=== PATIENT | male | born 1980 | race Caucasian/White ===

== ENCOUNTER 2025-02-28 17:33 | Emergency (ER) | payer MEDICAID, SELFPAY ==
[2025-02-28 17:38] VITALS: BP 153/98; PULSE 69; O2SAT 93
[2025-02-28 17:39] VITALS: BP 153/98; PULSE 90; RESP 20; O2SAT 99
[2025-02-28 17:46] VITALS: BP 169/95; PULSE 101; PULSE 85; RESP 22; O2SAT 94
--- NOTE | 2025-02-28 17:56 | ED.GENADUL_ITS ---
Discharge Plan Disposition Patient Disposition: [facility] Condition: Stable Discharge Details Clinical Impression: Drug abuse, Drug withdrawal ED Provider: Wes Chacon Home Meds and New Rx's Prescriptions: Continued sildenafil 50 mg tablet 50 mg PO DAILY PRN (Reason: sexual activity) Qty: 10 6RF Rx Instructions: administer 30 minutes to 4 hours before activity methadone 10 mg/mL concentrate 110 mg PO DAILY Rx Instructions: BAART Discharge Instructions Additional Instructions: You are likely experiencing some withdrawal symptoms which resolved and are not life-threatening. If you feel significantly more ill or feel you are suffering from an emergent medical process return to the emergency department for reevaluation. HPI General Mode of arrival: EMS . Date/Time Provider Initiated Documentation: 02/28/25 17:51 . Information obtained by: patient . History of Present Illness 44 year old M presents to the emergency department with the chief complaint of ?withdrawing, described as moderate, Patient started experiencing this hour(s) (1) and it has been constant. No relieving factors improve symptom(s), No exacerbating factors reported . Patient notes no other symptoms.. Patient did receive the following treatments prior to arrival, none Related Data Home Medications ?Medication ?Instructions ?Recorded ?Confirmed sildenafil 50 mg tablet 50 mg PO DAILY PRN sexual activity 11/29/19 11/29/19 #10 tabs methadone 10 mg/mL oral concentrate 110 mg PO DAILY 09/30/20 Previous Rx's ?Medication ?Instructions ?Recorded sildenafil 50 mg tablet 50 mg PO DAILY PRN sexual activity 11/29/19 #10 tabs Allergies Allergy/AdvReac Type Severity Reaction Status Date / Time No Known Allergies Allergy Verified 11/13/19 16:46 General Stated Complaint: DrugWithdr/MAT JULIA: 3 Review of Systems All systems reviewed & are unremarkable except as noted in HPI and below Constitutional Constitutional: Denies chills, Denies fever(s) and Denies weakness Cardiovascular Cardiovascular: Denies chest pain and Denies dyspnea Respiratory Respiratory: Denies cough and Denies dyspnea Gastrointestinal Gastrointestinal: Denies abdominal pain, Reports nausea and Reports vomiting Neurologic Neurologic: Denies weakness Psychiatric Psychiatric: Denies depression Exam Const General: no acute distress Orientation: alert HENMT Head: normal to inspection Ears: external ears normal General nose exam: external nose normal Mouth: moist mucous membranes Eyes General: appearance normal, both eyes and all related structures Neck Neck: normal visual inspection Resp Effort & Inspection: normal respiratory effort and able to speak in complete sentences Auscultation: clear to auscultation bilaterally Cardio Rate: regular rate GI Palpation: soft and nontender Skin General skin exam: no rashes or lesions noted Neuro General: patient alert and patient oriented x3 Extrem General: normal to inspection Psych Mental Status: mental status grossly normal Course Vital Signs Vital signs: Vital Signs Pulse 90 02/28/25 17:39 Respiratory Rate 20 02/28/25 17:39 Blood Pressure 153/98 H 02/28/25 17:39 Pulse Oximetry 99 02/28/25 17:39 Pulse 90 02/28/25 17:39 Respiratory Rate 20 02/28/25 17:39 Blood Pressure 153/98 H 02/28/25 17:39 Pulse Oximetry 99 02/28/25 17:39 Oxygen Delivery Method Room Air 02/28/25 17:39 Oxygen Flow Rate 0 02/28/25 17:39 Medical Decision Making 44-year-old male who states he uses xylazine and other drug normal daily, denies any alcohol use, who was placed in custody today a few hours later started flailing around and acting bizarre so was brought here by EMS. EMS gave him midazolam and he is currently calm and cooperative laying in bed complaining of some nausea. He is moving all extremities well, has a soft nontender abdomen. He has clear lung sounds. Suspect he probably did have some mild withdrawal symptoms or could have been drug related. Will check screening labs and monitor. Labs show no significant findings and patient is stable resting in bed. 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) Social History (Updated 11/29/19 @ 15:22 by Cata Chapman RN) Smoking/Tobacco Use Status: Current every day Tobacco Type: cigarettes Smoking packs per day: 1 Smoking cigarettes per day: 20.0 Smoking risk assessment performed?: Yes Alcohol Intake: current Alcohol Intake frequency: a few times a week Alcohol type: beer Drug use: Occasionally Substance use type: marijuana, heroin and opiates Details: History of IV Drug Use Household members: significant other Housing: apartment Number of Children: 4 Do you need help understanding health information?: Never current occupation: [employer] Sexually active: Yes Do you think of yourself as: straight/heterosexual Current gender identity: male
[2025-02-28] MEDS: Ondansetron O.D.T. 4 MG TABEF PO (17:59)
[2025-02-28 18:43] LABS: ALT 81 U/L (16-63); AST 53 U/L (15-37); Alkaline Phosphatase 163 U/L (46-116); Anion Gap 9.9 mmol/L (3-11); BUN 9 mg/dL (7-18); Bilirubin, Total 0.5 mg/dL (0.2-1.0); CO2 29.1 mmol/L (21.0-32.0); CREATININE 0.7 mg/dL (0.70-1.30); Calcium 9.5 mg/dL (8.5-10.1); Chloride 102 mmol/L (98-107); ETHANOL BLOOD < 3.0 mg/dL (<10); Estimated GFR 117.98 (mL/min/1.73m2); Glucose 129 mg/dL (74-106); Magnesium 1.6 mg/dL (1.8-2.4); Sodium 141 mmol/L (136-145); Total Protein 8.3 g/dL (6.4-8.2)
[2025-02-28 19:09] LABS: Abs Immature Grans 0.04 10^3/uL (0.0-0.06); Absolute Eosinophil Count 0.01 10^3/uL (0.0-0.7); Absolute Monocyte Count 0.48 10^3/uL (0.1-0.8); Basophils % 0.4 %; Eosinophils % 0.1 %; HCT 43.7 % (40.0-50.0); HGB 14.9 g/dL (13.5-17.5); Immature Grans % 0.3 %; Lymphocytes % 9.8 %; MCH 29.9 pg (27.0-33.0); MCHC 34.1 % (32.0-36.0); MCV 88 fL (80-95); MPV 9.3 fL (8.0-11.0); Monocytes % 3.4 %; Platelet Count 332 10^3/uL (130-400); RBC 4.98 10^6/uL (4.36-5.78); RDW 11.7 % (11.8-14.1); RDW-SD 37.3 fL; WBC 14.12 10^3/uL (4.4-10.8)
[2025-02-28 19:10] LABS: Absolute Basophil Count 0.06 10^3/uL (0.0-0.2); Absolute Lymphocyte Count 1.38 10^3/uL (1.2-3.4); Absolute Neutrophil Count 12.14 10^3/uL (1.2-6.7)
[2025-02-28 19:18] VITALS: PULSE 77; O2SAT 94
[2025-02-28 19:24] VITALS: PULSE 78; O2SAT 96
[2025-02-28 19:26] VITALS: BP 139/57; PULSE 67; O2SAT 99
== END 2025-02-28 20:29 ==
LOC: ER 20:31
PROVIDERS: Emergency Provider Emergency Medicine
DX: F19.139 Other psychoactive substance abuse with withdrawal, unspecified (principal); F17.210 Nicotine dependence, cigarettes, uncomplicated
CPT/HCPCS: 80053; 99283; 80320; 83735; 85025

== ENCOUNTER 2025-03-01 01:15 | Inpatient (IN) | payer MEDICAID, SELFPAY ==
[2025-03-01] VITALS (76 sets, daily range): BP systolic 102–180; BP diastolic 57–112; PULSE 87–183; RESP 14–41; TEMP 37.6–38.7; O2SAT 94–100
--- NOTE | 2025-03-01 01:10 | ED.GENADUL_ITS ---
Discharge Plan Disposition Patient Disposition: Admit to [facility] Condition: Poor Discharge Details Clinical Impression: Polysubstance abuse, Benzodiazepine withdrawal, Hypokalemia, Hypomagnesemia Primary Care Provider: Unknown,Unknown ED Provider: Alvarez Mcghee and New Rx's Prescriptions: No Action sildenafil 50 mg tablet 50 mg PO DAILY PRN (Reason: sexual activity) Qty: 10 6RF Rx Instructions: administer 30 minutes to 4 hours before activity methadone 10 mg/mL concentrate 110 mg PO DAILY Rx Instructions: KLAEN HAMILTON General Mode of arrival: EMS . Date/Time Provider Initiated Documentation: 03/01/25 01:36 . Limitations to Documentation: other (hestitant to provide history in front of corrections) . Information obtained by: patient and RN notes reviewed . HPI Narrative: Patient is brought back to ED from corrections for evaluation of anxiety, sweats, tremor, vomiting. Patient has just been taken into custody. He was seen here earlier with agitation and had received Versed by EMS. Here he had no real issues. Laboratory studies were checked and he was released back into custody. He is brought back for worsening symptoms. Patient is hesitant to speak in front of corrections officers. Correctional officers are not allowed to leave the room per their supervises orders. Therefore, difficult to get history but it does sound like patient is using fair amount of benzodiazepines and xylazine. Also admits to a couple beers a day. He denies any chest pain or abdominal pain. Is otherwise not very forthcoming. Related Data Home Medications ?Medication ?Instructions ?Recorded ?Confirmed sildenafil 50 mg tablet 50 mg PO DAILY PRN sexual activity 11/29/19 11/29/19 #10 tabs methadone 10 mg/mL oral concentrate 110 mg PO DAILY 09/30/20 Previous Rx's ?Medication ?Instructions ?Recorded sildenafil 50 mg tablet 50 mg PO DAILY PRN sexual activity 11/29/19 #10 tabs Allergies Allergy/AdvReac Type Severity Reaction Status Date / Time No Known Allergies Allergy Verified 11/13/19 16:46 General JULIA: 3 Exam Narrative Exam Narrative: Const: WDWN male who is diaphoretic and tremulous. VS per triage. HEENT: NC/AT. Normal facial exam. Neck: Supple. Trachea midline. Lungs: Normal respiratory effort. Lungs clear. Cor: RRR without murmur. Good radial pulses. GI: Soft/ND/NT. Neuro: A+O x 3. Normal speech, mentation. Cranial nerves II - XII grossly intact. No gross motor or sensory deficit. Ext: No C/C/E. Medical Decision Making Patient returns to ED from corrections with what is likely benzodiazepine withdrawal. Does not sound like he drinks enough alcohol on a regular basis to be alcohol withdrawal. He does admit to xylazine use and some of this may be related to that but given his diaphoresis, vomiting, tremors and tachycardia suspect this is more benzodiazepine withdrawal than anything. Laboratory studies from earlier today show low magnesium and low potassium. Will repeat these tonight as well as give fluid bolus. Will obtain EKG given reported xylazine use. Will give Zofran for nausea and vomiting and Valium for presumed withdrawal. Patient's potassium and magnesium continue to be low so these are replaced intravenously. He is much improved after Zofran and Valium. He is having behavioral issues including meowing and hissing like a cat, and as I came into the room to reassess him threw his head back and spit up a bunch of saliva. His response to the Valium suggest that he is having benzodiazepine withdrawal. He does have history of IVDA/opiate use and has been on methadone prevously, as well. Xylazine typically used with fentanyl so there may be opiate withdrawal as well. I do not think [facility] has the ability to detox him. I have discussed this with the corrections officers who are in agreement. I have spoken to the nursing drywall application supervisor as well as to the hospitalist. Will continue IV fluids. I have ordered another 5 mg of IV Valium. Will plan admission for further withdrawal management. Lab Data Lab results reviewed: Yes I reviewed the patient's lab results. Lab results narrative: see [facility] ECG Data Attestation: I personally reviewed and interpreted this ECG (s) as follows: Prior ECG tracings: not available for review Interpretation: see MDM/EKG Critical Care Time Critical Care Time Critical Care Time: Yes Total Critical Care Time: 45 Attestation: Upon my evaluation, this patient had a high probability of imminent or life- threatening deterioration, which required my direct attention, intervention, and personal management. I have personally provided 45 minutes of critical care time exclusive of time spent on separately billable procedures. Time includes monitoring for potential decompensation, ordering of tests and medications, review of laboratory and radiology results, discussion with consultants and documentation . Interventions were performed as documented above in procedures. 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) Social History Smoking/Tobacco Use Status: Current every day Tobacco Type: cigarettes Smoking packs per day: 1 Smoking cigarettes per day: 20.0 Smoking risk assessment performed?: Yes Alcohol Intake: current Alcohol Intake frequency: a few times a week Alcohol type: beer Drug use: Daily Substance use type: marijuana, heroin and opiates Details: History of IV Drug Use Household members: significant other Housing: apartment Number of Children: 4 Do you need help understanding health information?: Never current occupation: [employer] Sexually active: Yes Do you think of yourself as: straight/heterosexual Current gender identity: male
--- NOTE | 2025-03-01 01:30 | RT.EKG_ITS ---
APPROVED REPORT Exam: Resting ECG Reason for Exam: qt monitoring Patient Location: E HR:95 bpm ECG Measurements Heart Rate 95 AXIS ND 155 P 83 QRSd 88 QRS 92 QT 318 T 45 QTc 403 Conclusion Sinus rhythm...normal P axis, V-rate 60- 99 Ventricular premature complex...V complex w/ short R-R interval Normal Interval/[place] Nonspecific ST-T changes
[2025-03-01 01:52] LABS: Anion Gap 11.3 mmol/L (3-11); BUN 12 mg/dL (7-18); CO2 28.7 mmol/L (21.0-32.0); Calcium 9.7 mg/dL (8.5-10.1); Chloride 103 mmol/L (98-107); Estimated GFR 96.37 (mL/min/1.73m2); Glucose 201 mg/dL (74-106); Magnesium 1.6 mg/dL (1.8-2.4); Potassium 3.1 mmol/L (3.5-5.1); Sodium 143 mmol/L (136-145)
[2025-03-01] MEDS: diazePAM 10 MG/2 ML SYR IVP (01:57)
[2025-03-01] MEDS: Normal Saline 1,000 ML 1000 ML IV (01:58)
[2025-03-01] MEDS: Ondansetron 4 MG/2 ML VIAL IVP ×3 (01:58→20:13)
[2025-03-01] MEDS: MAGNESIUM SULFATE 2 GM/50 ML BAG IV_INF ×2 (03:11→19:00)
[2025-03-01] MEDS: POTASSIUM CHLORIDE 10 MEQ/100 ML BAG 100 MEQ IV_INF ×2 (03:31→04:42)
[2025-03-01] MEDS: diazePAM 10 MG/2 ML SYR 5 MG IVP ×2 (04:00→04:25)
--- NOTE | 2025-03-01 04:34 | HPE_ITS ---
Date of service: 03/01/25 Time of Service: 04:34 Assessment and Plan Assessment and plan (1) Benzodiazepine withdrawal: Status: Acute Assessment and plan: Given his response to valium clinically and the minimal history we have, this appears to be primarily benzodiazepine withdrawal. He does respond to benzos so will stick with this, use standard lorazepam protocol with additional diazepam prn. He has minimal alcohol use (2) Polysubstance abuse: Status: Acute Assessment and plan: Also xylazine and likely fentanyl use. He is starting to yawn suggesting some opioid withdrawal. However sedative withdrawal is most medically life- threatening so focus treatment on this. If additional sedation needed, with xylazine use precedex would make sense as well or oral clonidine if he is more cooperative. we need a UDS to help guide therapy, catheterize if necessary. (3) History of opioid abuse: Status: Acute Assessment and plan: Offer MOUD with buprenorphine when he is stable and more cooperative, especially if he is clearly experiencing opioid withdrawal (4) Hypokalemia: Status: Acute Assessment and plan: supplemented, follow. (5) Hypomagnesemia: Status: Acute Assessment and plan: supplemented, follow (6) Nicotine dependence: Status: Acute Assessment and plan: nicotene patch prn (7) Elevated liver enzymes: Status: Acute Assessment and plan: high risk for hepatitis, send hep B/C and HIV screeens (8) DVT prophylaxis: Status: Acute Assessment and plan: enoxaparin History of Present Illness History of Present Illness Chief Complaint: anxiety, drug withdrawal N arrative: 44 yo M with history of polysubstance abuse, history of methadone for opioid use disorder but not recently in treatment, who returned to the emergency room with correctional staff for the second after being discharged the previous evening with increased anxiety, sweats, vomiting, and tremor. He initially presened at 17:36 with more mild symtpoms after being taken into custody by police. He was given midazolam in the field and was resting in bed. He was discharged at 19:45 but returned at 1:10 this morning with more severe symptoms. He gave minimal history but his symptoms including HR and BP clearly improved after diazepam. I was called to admit his for presumed benzodiazepine withdrawal. He has vomited here. He has a spit mask because he was spitting at the correctional officers. He has not had any urine output or diarrhea. The patient himself will not answer questions for me about what he is taking. He does nod to confirm he is taking benzodiazepines, xylazine, and fentanyl. 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) Medical History IVDU (intravenous drug user) Social History (Updated 03/01/25 @ 04:46 by Eder Reina) Smoking/Tobacco Use Status: Current every day Tobacco Type: cigarettes Smoking packs per day: 1 Smoking cigarettes per day: 20.0 Smoking risk assessment performed?: Yes Alcohol Intake: current Alcohol Intake frequency: a few times a week Alcohol type: beer Drug use: Daily Substance use type: marijuana, heroin, tranquilizers, sedatives and opiates Details: History of IV Drug Use Household members: significant other Housing: apartment Number of Children: 4 Do you need help understanding health information?: Never current occupation: [employer] Sexually active: Yes Do you think of yourself as: straight/heterosexual Current gender identity: male Additional Social history: police custody 02/28 Meds Allergies and Home Medications Allergies Allergy/AdvReac Type Severity Reaction Status Date / Time No Known Allergies Allergy Verified 11/13/19 16:46 Home Medications ?Medication ?Instructions ?Recorded ?Confirmed ?Type sildenafil 50 mg tablet 50 mg PO DAILY PRN sexual activity 11/29/19 11/29/19 Rx #10 tabs methadone 10 mg/mL oral concentrate 110 mg PO DAILY 09/30/20 History Exam Narrative Exam Narrative: GEN: This male, shackeled to bed at 4 points, with spit baels over head, alert, responds to some questions, but mostly closes eyes and lays on his side. No acute distress at rest. HEENT: Head atraumatic. Conjunctiva clear, no icterus. Pupils mid-sized and reactive bilateraly, EOMI. no rhinorrhea. MMM, no clear dental lesions on limited exam. Neck is supple with no masses or lymphadenopathy, trachea midline LUNGS: CTAB with normal effort CV: RRR with no murmurs, gallops, or rubs. ABD: active bowel sounds, soft, nontender and nondistended. No masses. EXT: no cyanosis, clubbing, or edema MSK: No joint redness or swelling NEURO: CN 2-12 grossly intact. Normal movement of 4 extremities. Normal coordination. No tremor currently. SKIN: No rashes or open wounds PSYCH: withdrawn during my exam. Report of bizzare behavior like meowing, but clearly understands and responds to what is happening in the room. Results Imaging EKG: report reviewed (Sinus rhythm, normal axis, V-rate, PCVs V complex w/ short R-R interval Normal Interval/[place] Nonspecific ST-T changes) and image reviewed Labs 03/01/25 01:28 Labs: Laboratory Results - last 24 hr 03/01/25 01:28 Sodium 143 Potassium 3.1 L Chloride 103 Carbon Dioxide 28.7 Anion Gap 11.3 H BUN 12 Creatinine 1.0 Est GFR (CKD-EPI 2020) 96.37 Glucose 201 H Calcium 9.7 Magnesium 1.6 L Last Vital Signs Pulse 113 H 03/01/25 04:16 Resp 26 H 03/01/25 04:20 BP 175/68 H 03/01/25 04:16 Pulse Ox 96 03/01/25 03:07 Time Spent Time spent with Patient: 55-74 minutes Time was spent: preparing to see the patient(eg.review tests), obtaining and/or reviewing separately otained hiistory, ordering medications,tests, procedures, referring, communicating with other health senior resident care director, indepentently interpreting results, counseling the patient and care coordination
--- NOTE | 2025-03-01 05:13 | W.PC.ACHO ---
Registration Status: Primary Language: Preferred Language: ED Information & Data Chief Complaint DrugWithdr/MAT 03/01/25 01:32 Chief Complaint DrugWithdr/MAT 03/01/25 01:10 Triage Note pt brought in by EMS in [facility] 03/01/25 01:10 custody, pt discharged earlier this evening. returns for increased tremors, episode of vomiting and seizure like activity. used xylazine and benzos 2 days ago. pt vomiting on arrival. Medical / Surgical History IVDU (intravenous drug user) Most Recent Vital Signs Temperature Source Oral 03/01/25 01:10 Pulse 113 H 03/01/25 04:16 Pulse 126 H 03/01/25 04:20 Respiratory Rate 26 H 03/01/25 04:20 Respiratory Pattern Normal 03/01/25 01:32 Blood Pressure 175/68 H 03/01/25 04:16 Blood Pressure Mean 99 03/01/25 04:16 Blood Pressure Position Sitting 03/01/25 01:10 Pulse Oximetry 96 03/01/25 03:07 Oxygen Delivery Method Room Air 03/01/25 01:10 Oxygen Flow Rate 0 03/01/25 01:10 Pain Level 0 03/01/25 01:10 Allergies No Known Allergies Allergy (Verified 11/13/19 16:46) Precautions Isolation Standard precaution 03/01/25 01:32 IV IV Catheter Type [Right Upper Saline Lock arm] IV Catheter Gauge [Right Upper 20 arm] Diet Orders Category Date Time Status Nothing Per Oral [DIET] Nutrition 03/01/25 Breakfast Active Diagnostics 03/01/25 03/01/25 Range/Units 08:00 01:28 Sodium Pending 143 (136-145) mmol/L Potassium Pending 3.1 L (3.5-5.1) mmol/L Chloride Pending 103 (98-107) mmol/L Carbon Dioxide Pending 28.7 (21.0-32.0) mmol/L Anion Gap Pending 11.3 H (3-11) mmol/L BUN Pending 12 (7-18) mg/dL Creatinine Pending 1.0 (0.70-1.30) mg/dL Est GFR (CKD-EPI 2020) Pending 96.37 (mL/min/1.73m2) Glucose Pending 201 H (74-106) mg/dL Calcium Pending 9.7 (8.5-10.1) mg/dL Magnesium Pending 1.6 L (1.8-2.4) mg/dL Intake and Output - 24 Hour Total 03/01/25 01:01 thru 03/01/25 04:31 Intake Total 1150 Balance 1150 Weight 73.845 kg Intake: IV 1150 Falls Risk Assessment History of Falls No History 03/01/25 01:34 Contributing Factors No Factors 03/01/25 01:34 Ambulatory Aids Independent 03/01/25 01:34 Tubes/Lines None 03/01/25 01:34 Gait Evaluation No gait disturbance 03/01/25 01:34 Cognition No cognitive impairment 03/01/25 01:34 Fall Total Score 0 03/01/25 01:34 Level of Risk Standard/Low Risk 03/01/25 01:34 Problems (Last Updated 03/01/25 @ 04:45 by Eder Reina) Elevated liver enzymes (Acute) DVT prophylaxis (Acute) Hypomagnesemia (Acute) Hypokalemia (Acute) Benzodiazepine withdrawal (Acute) Polysubstance abuse (Acute) History of opioid abuse (Acute) Nicotine dependence (Acute) v v v v v v v v v Sending and/or Receiving Nurses: Please use comment section below to note any information pertinent to the patient hand-off not included above. Information / Comments:Was brought in from correctional center. Is going through detoxing. Unsure of all substances taken, but did have xylazine two days ago. Valium given for symptom control. Patient had low magnesium and potassium which was repleted in ER. Patient is not speaking to staff. Behavioral issues include meowing/hissing like a cat, and spitting. Did have an episode of vomiting in the ER, and zofran was given. which was helpful. has 20g PIV in right upper arm. Report received from: Thierry Schwartz RN
[2025-03-01] MEDS: Normal Saline 1,000 ML 125 ML IV ×3 (05:58→22:54)
[2025-03-01 07:19] LABS: Hemoglobin A1C 5.8 % (<5.7)
[2025-03-01] MEDS: Enoxaparin 40 MG/0.4 ML SYR SC (07:53)
[2025-03-01] MEDS: Normal Saline Flush 10 ML SYR IVP ×6 (07:53→14:50)
[2025-03-01] MEDS: LORazepam 20 MG/10 ML VIAL IVP ×3 (08:32→20:14)
--- NOTE | 2025-03-01 08:32 | PDOC.CMIN ---
Date of service: 03/01/25 Time of Service: 08:32 Care Management Initial Assmt Initial Assessment Reason for Hospitalization: Benzodiazepine/polysubstance withdrawal Functional Status/Living Situation Patient Presentation: Kb was lying in bed and had a Dewaxer in the room. He presented to the ED on 2 separate occasions yesterday. He presented first, with the chief complaint of withdrawing; Later in the day, he presented for evaluation of anxiety, sweats, tremor, vomiting, after being taken into police custody. Upon CM arrival, he was online with tele-neurology. Per report, he was spitting at the aoc plans intelligence officer chief, and refusing to answer questions, other than with a meowing sound. CM will continue to follow. Town of Residence: [facility] Resides with: Other ([facility] ) Significant Other/Family: Local ([facility] - Significant other ) Employment Status: Employed ([employer]) Instrumental Activities of Daily Living (ADLs): Independent Medications Medication Management: Issues/Barriers with Instructions/Directions Advance Directives Advance Directives: Do you have an Advance Directive: N 02/28/25 19:54 AD On File at [facility]: N 09/26/18 09:53 Date Asked 02/28/25 02/28/25 19:54 AD Date Reviewed COLST On File at [facility] No 02/28/25 19:54 COLST Date Scanned Code Status Resuscitation Status Full Code Portal Pt does not currently have a portal and education provided: No Insurance Coverage/Financial Issues Insurance: [facility] Care Team Visit Care Team Role Provider Type Alvarez Rivas MD MD [facility] STAFF PHYSICIAN Unknown Unknown Primary Care Provider STAFF PHYSICIAN Alvarez Mcghee MD Emergency Provider [facility] STAFF PHYSICIAN Eder Reina Admit Provider [facility] STAFF PHYSICIAN Attending Provider Discharge Potential Discharge Needs: PCP F/U Appt Anticipated Barriers to Discharge: Medical Status Patient/Family Education Needs: Review discharge instructions, discuss Ask Me Three Transportation: Facility Transport (DOC) Plan: Anticipate Kb will be discharged back to [facility]. He will follow up with the facility providers and discharge plan of care. He will be transported via facility vehicle by [facility] [employer]. 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) Medical History IVDU (intravenous drug user) Social History (Updated 03/01/25 @ 04:46 by Eder Reina) Smoking/Tobacco Use Status: Current every day Tobacco Type: cigarettes Smoking packs per day: 1 Smoking cigarettes per day: 20.0 Smoking risk assessment performed?: Yes Alcohol Intake: current Alcohol Intake frequency: a few times a week Alcohol type: beer Drug use: Daily Substance use type: marijuana, heroin, tranquilizers, sedatives and opiates Details: History of IV Drug Use Household members: significant other Housing: apartment Number of Children: 4 Do you need help understanding health information?: Never current occupation: [employer] Sexually active: Yes Do you think of yourself as: straight/heterosexual Current gender identity: male Additional Social history: police custody 02/28 Readmission Within the Past 30 Days Yes or No: No
[2025-03-01 09:50] LABS: BUN 14 mg/dL (7-18); CREATININE 0.8 mg/dL (0.70-1.30); Chloride 109 mmol/L (98-107); Estimated GFR 113.32 (mL/min/1.73m2); Glucose 154 mg/dL (74-106); Magnesium 1.8 mg/dL (1.8-2.4); Sodium 147 mmol/L (136-145)
[2025-03-01 16:59] LABS: *AMPHETAMINES SCREEN URINE Negative (Negative); *BARBITURATES SCREEN URINE Negative (Negative); *BENZODIAZEPINES SCREEN URINE Positive (Negative); Cannabinoids THC Negative (Negative); Cocaine Screen,Urine Positive (Negative); METHADONE URINE SCREEN Negative (Negative); OPIATES URINE SCREEN Negative (Negative)
[2025-03-01 17:00] LABS: Tricyclic Antidepressants Negative (Negative)
--- NOTE | 2025-03-01 18:15 | DI.RAD_ITS ---
Exam(s) XR PORTABLE CHEST AP EXAM: XR PORTABLE CHEST AP CLINICAL HISTORY: r/o aspiration pneumonia. TECHNIQUE: 2D digital imaging was performed. COMPARISON: No exams were available for comparison FINDINGS: Single AP portable view. Heart size is upper normal. The mediastinum is not widened. Lungs are clear. No infiltrates nor obvious pleural effusions. IMPRESSION: No acute pulmonary findings on this single AP portable view of the chest. DATA REPOSITORY: RADIATION DOSE DELIVERED:
[2025-03-01] MEDS: ACETAMINOPHEN 1,000 MG/100 ML BAG 400 MG (18:53)
[2025-03-01] MEDS: POTASSIUM CHLORIDE 20 MEQ/100 ML BAG 50 MEQ IV_INF (18:59)
[2025-03-01] MEDS: Nicotine 21 MG/24 HR PATCH TD (20:13)
[2025-03-02] VITALS (43 sets, daily range): BP systolic 119–163; BP diastolic 73–104; PULSE 75–146; RESP 16–46; TEMP 36.1–37.9; O2SAT 91–100
--- NOTE | 2025-03-02 | DI.RAD_ITS ---
Exam(s) XR PORTABLE CHEST AP EXAM: XR PORTABLE CHEST AP CLINICAL HISTORY: elevated wbc. TECHNIQUE: 2D digital imaging was performed. COMPARISON: CR XR PORTABLE CHEST AP from 03/01/2025 FINDINGS: Single AP portable view. Patient is rotated towards the left. Heart size normal. Mediastinum is not widened. The lungs remain clear with no infiltrates nor pleural effusions. No obvious pneumothorax. No fract ures evident. IMPRESSION: No acute pulmonary findings on this single AP portable view of the chest. DATA REPOSITORY: RADIATION DOSE DELIVERED:
[2025-03-02] MEDS: ACETAMINOPHEN 1,000 MG/100 ML BAG 400 MG ×2 (01:28→06:13)
[2025-03-02] MEDS: LORazepam 20 MG/10 ML VIAL IVP ×8 (01:28→22:58)
[2025-03-02] MEDS: Normal Saline Flush 10 ML SYR IVP ×8 (01:29→21:12)
[2025-03-02 06:36] LABS: Abs Immature Grans 0.07 10^3/uL (0.0-0.06); Absolute Basophil Count 0.02 10^3/uL (0.0-0.2); Absolute Lymphocyte Count 1.74 10^3/uL (1.2-3.4); Absolute Monocyte Count 0.93 10^3/uL (0.1-0.8); Absolute Neutrophil Count 14.17 10^3/uL (1.2-6.7); Basophils % 0.1 %; HCT 38.7 % (40.0-50.0); Immature Grans % 0.4 %; Lymphocytes % 10.3 %; MCHC 33.6 % (32.0-36.0); MCV 89 fL (80-95); MPV 10.1 fL (8.0-11.0); Monocytes % 5.5 %; Neutrophils % 83.7 %; Platelet Count 272 10^3/uL (130-400); RBC 4.33 10^6/uL (4.36-5.78); RDW 12.1 % (11.8-14.1); RDW-SD 39.7 fL; WBC 16.93 10^3/uL (4.4-10.8)
[2025-03-02 07:12] LABS: ALT 57 U/L (16-63); AST 38 U/L (15-37); Albumin 3.5 g/dL (3.4-5.0); Alkaline Phosphatase 123 U/L (46-116); Anion Gap 9.3 mmol/L (3-11); BUN 15 mg/dL (7-18); Bilirubin, Total 0.9 mg/dL (0.2-1.0); CO2 26.7 mmol/L (21.0-32.0); CREATININE 0.7 mg/dL (0.70-1.30); Calcium 8.8 mg/dL (8.5-10.1); Chloride 111 mmol/L (98-107); Estimated GFR 117.98 (mL/min/1.73m2); Glucose 116 mg/dL (74-106); Sodium 147 mmol/L (136-145); Total Protein 7.4 g/dL (6.4-8.2)
[2025-03-02] MEDS: Normal Saline 1,000 ML 125 ML IV (07:20)
[2025-03-02] MEDS: Enoxaparin 40 MG/0.4 ML SYR SC (08:08)
[2025-03-02] MEDS: ACETAMINOPHEN 1,000 MG/100 ML BAG 400 MG IVPB (12:24)
--- NOTE | 2025-03-02 13:47 | PGE_ITS ---
Date of Service Date of service: 03/02/25 Time of Service: 13:47 Assessment and Plan Assessment and plan (1) Benzodiazepine withdrawal: Status: Acute Assessment and plan: Given his response to valium clinically and the minimal history we have, this appears to be primarily benzodiazepine withdrawal. He does respond to benzos so will stick with this, use standard lorazepam pr otocol with additional diazepam prn. He has minimal alcohol use 03/02/25 Pt with CIWA of 10 this am. C/W benzo prn. Pt is only getting IV as he is refusing PO meds. Would like to give librium but this is only available in PO form (2) Polysubstance abuse: Status: Acute Assessment and plan: Also xylazine and likely fentanyl use. He is starting to yawn suggesting some opioid withdrawal. However sedative withdrawal is most medically life- threatening so focus treatment on this. If additional sedation needed, with xylazine use precedex would make sense as well or oral clonidine if he is more cooperative. we need a UDS to help guide therapy, catheterize if necessary. 03/02/25 UDS positive for cocaine and benzos (3) History of opioid abuse: Status: Acute Assessment and plan: Offer MOUD with buprenorphine when he is stable and more cooperative, especially if he is clearly experiencing opioid withdrawal (4) Hypokalemia: Status: Acute Assessment and plan: supplemented, follow. 03/02/25 Pt is refusing po and I will add IV potassium (5) Hypomagnesemia: Status: Acute Assessment and plan: supplemented, follow 03/02/25 Resolved (6) Nicotine dependence: Status: Acute Assessment and plan: nicotene patch prn (7) Elevated liver enzymes: Status: Acute Assessment and plan: high risk for hepatitis, send hep B/C and HIV screeens (8) DVT prophylaxis: Status: Acute Assessment and plan: enoxaparin Subjective Subjective Interval history since last seen: Pt seen and examined in his room this am. Pt does not communicate with me. Exam Narrative Exam Narrative: HEENT-NCAT MMM EOMI NECK-NO LAD NO JVD CV-RRR NO MRG PULM-CTAB NO AMU ABD-SCAPHOID BSA EXT-NO CCE BILAT NEURO-NO FOCAL DEFICITS PSYCH-CANNOT ASSESS 2/2 PT NOT WILLING TO COOPERATE Objective Last Vital Signs Temp 36.8 C 03/02/25 13:33 Pulse 111 H 03/02/25 12:01 Resp 16 03/02/25 12:01 BP 122/80 03/02/25 12:01 Pulse Ox 98 03/02/25 12:01 Laboratory Results - last 24 hr 03/01/25 03/02/25 13:10 05:44 WBC 16.93 H RBC 4.33 L Hgb 13.0 L Hct 38.7 L MCV 89 MCH 30.0 MCHC 33.6 RDW 12.1 Plt Count 272 MPV 10.1 Immature Gran % 0.4 Neutrophils % 83.7 Lymphocytes % 10.3 Monocytes % 5.5 Eosinophils % 0.0 Basophils % 0.1 Nucleated RBC % 0.0 Absolute Neutrophils 14.17 H Absolute Lymphocytes 1.74 Absolute Monocytes 0.93 H Absolute Eosinophils 0.00 Absolute Basophils 0.02 Sodium 147 H Potassium 3.0 L Chloride 111 H Carbon Dioxide 26.7 Anion Gap 9.3 BUN 15 Creatinine 0.7 Est GFR (CKD-EPI 2020) 117.98 Glucose 116 H Calcium 8.8 Total Bilirubin 0.9 AST 38 H ALT 57 Alkaline Phosphatase 123 H Total Protein 7.4 Albumin 3.5 Urine Opiates Screen Negative Urine Methadone Screen Negative Ur Barbiturates Screen Negative Ur Tricyclics Screen Negative Ur Amphetamines Screen Negative U Benzodiazepines Scrn Positive A Urine Cocaine Screen Positive A Ur THC Screen Negative Time Spent with Patient Time Spent with Patient: 25-34 minutes Time was spent: preparing to see the patient(eg.review tests), obtaining and/or reviewing separately otained hiistory, ordering medications,tests, procedures, referring, communicating with other health attending ambulatory care, indepentently interpreting results, counseling the patient and care coordination
[2025-03-02] MEDS: POTASSIUM CHLORIDE/0.45% NACL 1,000 ML 100 MEQ IV (14:09)
[2025-03-02 16:02] LABS: Procalcitonin < 0.10 ng/mL
[2025-03-02 16:16] LABS: Bilirubin Negative (Negative); Blood Negative (Negative); Clarity Clear (Clear); Glucose Negative (Negative); Ketones 15 mg/dL (Negative); Leukocyte Esterase Negative (Negative); Nitrite Negative (Negative)
[2025-03-02 16:17] LABS: ESR 7 mm/hr (0-15)
[2025-03-02 16:29] LABS: C-Reactive Protein < 0.50 mg/dL (<or=0.5)
[2025-03-02] MEDS: Nicotine 21 MG/24 HR PATCH TD (20:00)
[2025-03-02] MEDS: Ondansetron 4 MG/2 ML VIAL IVP (20:01)
[2025-03-02] MEDS: diazePAM 10 MG/2 ML SYR IVP ×3 (20:31→23:28)
[2025-03-03] VITALS (63 sets, daily range): BP systolic 122–155; BP diastolic 74–101; PULSE 73–130; RESP 20–48; TEMP 37.1–38.1; O2SAT 91–99
[2025-03-03] MEDS: POTASSIUM CHLORIDE/0.45% NACL 1,000 ML 100 MEQ IV ×3 (00:11→18:17)
[2025-03-03] MEDS: LORazepam 20 MG/10 ML VIAL IVP ×4 (00:52→08:50)
[2025-03-03] MEDS: diazePAM 10 MG/2 ML SYR IVP (03:20)
[2025-03-03 05:31] LABS: Abs Immature Grans 0.04 10^3/uL (0.0-0.06); Absolute Basophil Count 0.05 10^3/uL (0.0-0.2); Absolute Monocyte Count 0.88 10^3/uL (0.1-0.8); Absolute Neutrophil Count 12.17 10^3/uL (1.2-6.7); Basophils % 0.3 %; HCT 40.4 % (40.0-50.0); HGB 13.8 g/dL (13.5-17.5); Immature Grans % 0.3 %; Lymphocytes % 13.2 %; MCH 30.1 pg (27.0-33.0); MCHC 34.2 % (32.0-36.0); MCV 88 fL (80-95); MPV 9.5 fL (8.0-11.0); Monocytes % 5.8 %; Neutrophils % 80.4 %; Platelet Count 254 10^3/uL (130-400); RBC 4.58 10^6/uL (4.36-5.78); RDW 11.9 % (11.8-14.1); RDW-SD 38.1 fL; WBC 15.14 10^3/uL (4.4-10.8)
[2025-03-03] MEDS: Normal Saline Flush 10 ML SYR IVP ×2 (05:36→08:10)
[2025-03-03 05:46] LABS: ALT 49 U/L (16-63); AST 31 U/L (15-37); Albumin 3.5 g/dL (3.4-5.0); Alkaline Phosphatase 116 U/L (46-116); Anion Gap 9.2 mmol/L (3-11); BUN 15 mg/dL (7-18); CO2 26.8 mmol/L (21.0-32.0); CREATININE 0.6 mg/dL (0.70-1.30); Calcium 8.7 mg/dL (8.5-10.1); Chloride 108 mmol/L (98-107); Glucose 103 mg/dL (74-106); Potassium 3.3 mmol/L (3.5-5.1); Sodium 144 mmol/L (136-145); Total Protein 7.4 g/dL (6.4-8.2)
[2025-03-03] MEDS: Enoxaparin 40 MG/0.4 ML SYR SC (08:10)
--- NOTE | 2025-03-03 09:54 | PDOC.CMPRO ---
Date of service: 03/03/25 Time of Service: 09:54 Care Management Progress Note Progress Note Text Progress Note Text: Kb continues to require ICU level care for close monitoring and treatment for Benzodiazepine/polysubstance withdrawal. He is lying in bed and is accompanied by a search and rescue officer. Continue to wean off Benzodiazepine within the next 24-48 hours, per provider. CM provided and update to Soledad at the [facility]. CM will follow. Discharge Potential Discharge Needs: Consult Anticipated Barriers to Discharge: None Identified Patient/Family Education Needs: Review discharge instructions, discuss Ask Me Three Transportation: Private vehicle Plan: Anticipate, Kb will be discharged back to [facility]. He will follow up with the facility providers and discharge plan of care. He will be transported via facility vehicle by [facility] [employer]. Social Determinants of Health Screening Will the Patient Participate in the Screening?: Unable to obtain
--- NOTE | 2025-03-03 11:31 | PHA.REVIEW2 ---
Pharmacy Admission Review Admission Clinical Review Admission Pharmacy Review: Elevated liver enzymes (Acute) DVT prophylaxis (Acute) Hypomagnesemia (Acute) Hypokalemia (Acute) Benzodiazepine withdrawal (Acute) Polysubstance abuse (Acute) History of opioid abuse (Acute) Nicotine dependence (Acute) No Known Allergies Allergy (Verified 11/13/19 16:46) Resuscitation Status Full Code Height 5 ft 10 in Weight 66.2 kg Comments Comments/Follow Ups: plan to wean benzodiazepams. Pharmacy Admission Review Renal Dosing Renal Dosing: BUN 15 mg/dL (7-18) 03/03/25 05:15 Creatinine 0.6 mg/dL (0.70-1.30) L 03/03/25 05:15 Medications needing adjustments: Reviewed Anticoagulation Anticoagulation: Hgb 13.8 g/dL (13.5-17.5) 03/03/25 05:15 Hct 40.4 % (40.0-50.0) 03/03/25 05:15 Plt Count 254 10^3/uL (130-400) 03/03/25 05:15 Creatinine 0.6 mg/dL (0.70-1.30) L 03/03/25 05:15 DVT Prophylaxis: Reviewed Medications: Enoxaparin Opiate Usage Evaluate Pain Scale/Pains Meds: N/A Relevant Labs Relevant Labs: Potassium and magnesium repleted. ESR 7 mm/hr (0-15) 03/02/25 05:44 Sodium 144 mmol/L (136-145) 03/03/25 05:15 Potassium 3.3 mmol/L (3.5-5.1) L 03/03/25 05:15 Chloride 108 mmol/L (98-107) H 03/03/25 05:15 Magnesium 1.8 mg/dL (1.8-2.4) 03/01/25 09:30 C-Reactive Protein < 0.50 mg/dL (<or=0.5) 03/02/25 15:05 Electrolytes, C-Reactive P, ESR: Reviewed DM Control DM Control: N/A Cardiac Review BP, HR, EF%: Reviewed QTc Review QTc: Reviewed List meds needing interventions: IHy=[id number]; no adjustments needed. IV to PO Switch IV Medications: Reviewed Home Meds Home Med List reviewed: Reviewed Relevent Home Meds Not ordered & why?: was on methadone in past. Current Meds Current Medication Order Review: Reviewed Pharmacy Antibiotic Review Relevant Labs: Relevant Labs no antibiotics at this time 03/02/25 15:05 C-Reactive Protein < 0.50 Procalcitonin < 0.10 Comments Comments/Follow Ups: plan to wean benzodiazepams.
[2025-03-03 12:30] LABS: Fentanyl Scr w/Rfx Confirm Positive ng/mL (<1)
[2025-03-03 13:05] LABS: HIV-1/2 Ag & Ab Screen Negative (Negative)
[2025-03-03 13:53] LABS: Hepatitis C Ab w Rflx HCV PCR Reactive (Negative)
--- NOTE | 2025-03-03 14:09 | PGE_ITS ---
Date of Service Date of service: 03/03/25 Time of Service: 14:09 Assessment and Plan Assessment and plan (1) Benzodiazepine withdrawal: Status: Acute Assessment and plan: Given his response to valium clinically and the minimal history we have, this appears to be primarily benzodiazepine withdrawal. He does respond to benzos so will stick with this, use standard lorazepam pr otocol with additional diazepam prn. He has minimal alcohol use 03/02/25 Pt with CIWA of 10 this am. C/W benzo prn. Pt is only getting IV as he is refusing PO meds. Would like to give librium but this is only available in PO form 03/03/25 Pt still with a significant amount of benzo coverage. Will attempt to wean as tolerated. Pt does still have fairly significant tachy and tachypnea (2) Polysubstance abuse: Status: Acute Assessment and plan: Also xylazine and likely fentanyl use. He is starting to yawn suggesting some opioid withdrawal. However sedative withdrawal is most medically life- threatening so focus treatment on this. If additional sedation needed, with xylazine use precedex would make sense as well or oral clonidine if he is more cooperative. we need a UDS to help guide therapy, catheterize if necessary. 03/02/25 UDS positive for cocaine and benzos (3) History of opioid abuse: Status: Acute Assessment and plan: Offer MOUD with buprenorphine when he is stable and more cooperative, especially if he is clearly experiencing opioid withdrawal (4) Hypokalemia: Status: Acute Assessment and plan: supplemented, follow. 03/02/25 Pt is refusing po and I will add IV potassium 03/03/25 still with low k, cw iv replacement. (5) Hypomagnesemia: Status: Acute Assessment and plan: supplemented, follow 03/02/25 Resolved (6) Nicotine dependence: Status: Acute Assessment and plan: nicotene patch prn (7) Elevated liver enzymes: Status: Acute Assessment and plan: high risk for hepatitis, send hep B/C and HIV screeens (8) DVT prophylaxis: Status: Acute Assessment and plan: enoxaparin Subjective Subjective Interval history since last seen: PT seen and examined in his room this am. Pt did not communicate with me de spite multiple attempts Exam Narrative Exam Narrative: HEENT-NCAT MMM EOMI PERRLA NECK-NO LAD NO JVD CV-RRR NO MRG PULM-CTAB NO AMU ABD-SCAPHOID BSA EXT-NO CCE BILAT NEURO-NO FOCAL DEFICITS but not completely assessed PSYCH-CANNOT ASSESS 2/2 PT NOT WILLING TO COOPERATE Objective Last Vital Signs Temp 38.1 C H 03/03/25 12:18 Pulse 113 H 03/03/25 13:01 Resp 36 H 03/03/25 13:01 BP 145/84 H 03/03/25 13:01 Pulse Ox 96 03/03/25 12:30 Laboratory Results - last 24 hr 03/01/25 03/01/25 03/02/25 06:45 13:10 05:44 WBC RBC Hgb Hct MCV MCH MCHC RDW Plt Count MPV Immature Gran % Neutrophils % Lymphocytes % Monocytes % Eosinophils % Basophils % Nucleated RBC % Absolute Neutrophils Absolute Lymphocytes Absolute Monocytes Absolute Eosinophils Absolute Basophils ESR 7 Sodium Potassium Chloride Carbon Dioxide Anion Gap BUN Creatinine Est GFR (CKD-EPI 2020) Glucose Calcium Total Bilirubin AST ALT Alkaline Phosphatase C-Reactive Protein Total Protein Albumin Procalcitonin Urine Color Urine Clarity Urine pH Ur Specific [place] Urine Protein Urine Ketones Urine Blood Urine Nitrite Urine Bilirubin Urine Urobilinogen Ur Leukocyte Esterase Urine Glucose Urine Fentanyl Screen Positive A HIV 1&2 Ag/Ab, 4th Gen Negative 03/02/25 03/02/25 03/03/25 15:05 15:50 05:15 WBC 15.14 H RBC 4.58 Hgb 13.8 Hct 40.4 MCV 88 MCH 30.1 MCHC 34.2 RDW 11.9 Plt Count 254 MPV 9.5 Immature Gran % 0.3 Neutrophils % 80.4 Lymphocytes % 13.2 Monocytes % 5.8 Eosinophils % 0.0 Basophils % 0.3 Nucleated RBC % 0.0 Absolute Neutrophils 12.17 H Absolute Lymphocytes 2.00 Absolute Monocytes 0.88 H Absolute Eosinophils 0.00 Absolute Basophils 0.05 ESR Sodium 144 Potassium 3.3 L Chloride 108 H Carbon Dioxide 26.8 Anion Gap 9.2 BUN 15 Creatinine 0.6 L Est GFR (CKD-EPI 2020) 123.60 Glucose 103 Calcium 8.7 Total Bilirubin 1.0 AST 31 ALT 49 Alkaline Phosphatase 116 C-Reactive Protein < 0.50 Total Protein 7.4 Albumin 3.5 Procalcitonin < 0.10 Urine Color Yellow Urine Clarity Clear Urine pH 7.0 Ur Specific [place] 1.020 Urine Protein Negative Urine Ketones 15 H Urine Blood Negative Urine Nitrite Negative Urine Bilirubin Negative Urine Urobilinogen 2.0 H Ur Leukocyte Esterase Negative Urine Glucose Negative Urine Fentanyl Screen HIV 1&2 Ag/Ab, 4th Gen Time Spent with Patient Time Spent with Patient: 25-34 minutes Time was spent: preparing to see the patient(eg.review tests), obtaining and/or reviewing separately otained hiistory, ordering medications,tests, procedures, referring, communicating with other health healthcare market consultant, indepentently interpreting results, counseling the patient and care coordination
[2025-03-03 15:17] LABS: HBs Antibody, Quant 10.2 mIU/mL (See Note); Hep B Surface Ab Positive (See Note); Hepatitis B Core Antibody Negative (Negative); Hepatitis B Surface Antigen Negative (Negative)
[2025-03-04] VITALS (56 sets, daily range): BP systolic 108–146; BP diastolic 69–102; PULSE 84–132; RESP 17–47; TEMP 37–38; O2SAT 82–98
[2025-03-04] MEDS: POTASSIUM CHLORIDE/0.45% NACL 1,000 ML 150 MEQ IV ×4 (00:37→22:08)
[2025-03-04] MEDS: LORazepam 20 MG/10 ML VIAL IVP (01:52)
[2025-03-04] MEDS: Normal Saline Flush 10 ML SYR IVP ×2 (01:54→08:24)
[2025-03-04] MEDS: diazePAM 10 MG/2 ML SYR IVP (04:25)
--- NOTE | 2025-03-04 04:57 | NUR.NOTE ---
pt had been placed in 4 pt shackles after pulling llines and IV apart. Now has recieved 10 mg of valium IV and has promised to calm down and go to sleep if his left arm is free. CO removed shackle from left arm with the understanding that if he tries to pull anything it clif be put back on. Sleeping now .3 pt shackles remain on.:
[2025-03-04] MEDS: Enoxaparin 40 MG/0.4 ML SYR SC (07:40)
--- NOTE | 2025-03-04 09:12 | PDOC.CMPRO ---
Date of service: 03/04/25 Time of Service: 09:12 Care Management Progress Note Progress Note Text Progress Note Text: Kb continues to require ICU level care for close monitoring and treatment for Benzodiazepine/polysubstance withdrawal. He is lying in bed and is accompanied by a weapons electrical engineering officer. Continue to wean off Benzodiazepine within the next 24-48 hours, per provider. CM provided and update to Soledad at the [facility]. CM will follow. Discharge Potential Discharge Needs: Consult Anticipated Barriers to Discharge: None Identified Patient/Family Education Needs: Review discharge instructions, discuss Ask Me Three Transportation: Private vehicle Plan: Anticipate, Kb will be discharged back to [facility]. He will follow up with the facility providers and discharge plan of care. He will be transported via facility vehicle by [facility] [employer]. Social Determinants of Health Screening Will the Patient Participate in the Screening?: Unable to obtain
[2025-03-04 10:05] LABS: Fentanyl Confirmation >40 ng/mL (<2); Norfentanyl Confirmation >200 ng/mL (<10)
--- NOTE | 2025-03-04 13:44 | PGE_ITS ---
Date of Service Date of service: 03/04/25 Time of Service: 13:44 Assessment and Plan Assessment and plan (1) Benzodiazepine withdrawal: Status: Acute Assessment and plan: Given his response to valium clinically and the minimal history we have, this appears to be primarily benzodiazepine withdrawal. He does respond to benzos so will stick with this, use standard lorazepam pr otocol with additional diazepam prn. He has minimal alcohol use 03/02/25 Pt with CIWA of 10 this am. C/W benzo prn. Pt is only getting IV as he is refusing PO meds. Would like to give librium but this is only available in PO form 03/03/25 Pt still with a significant amount of benzo coverage. Will attempt to wean as tolerated. Pt does still have fairly significant tachy and tachypnea 03/04/25 Will add librium to hopefully decrease his iv meds. Once pt is on oral benzos only, most likely can dc (2) Polysubstance abuse: Status: Acute Assessment and plan: Also xylazine and likely fentanyl use. He is starting to yawn suggesting some opioid withdrawal. However sedative withdrawal is most medically life- threatening so focus treatment on this. If additional sedation needed, with xylazine use precedex would make sense as well or oral clonidine if he is more cooperative. we need a UDS to help guide therapy, catheterize if necessary. 03/02/25 UDS positive for cocaine and benzos (3) History of opioid abuse: Status: Acute Assessment and plan: Offer MOUD with buprenorphine when he is stable and more cooperative, especially if he is clearly experiencing opioid withdrawal (4) Hypokalemia: Status: Acute Assessment and plan: supplemented, follow. 03/02/25 Pt is refusing po and I will add IV potassium 03/03/25 still with low k, cw iv replacement. 03/04/25 recheck labs in am (5) Hypomagnesemia: Status: Acute Assessment and plan: supplemented, follow 03/02/25 Resolved (6) Nicotine dependence: Status: Acute Assessment and plan: nicotene patch prn (7) Elevated liver enzymes: Status: Acute Assessment and plan: high risk for hepatitis, send hep B/C and HIV screeens 03/04/25 hep c quant pending (8) DVT prophylaxis: Status: Acute Assessment and plan: enoxaparin Subjective Subjective Interval history since last seen: Pt seen and examined today. Pt does respond to verbal stimuli. Pt states that he is amendable to taking PO meds Exam Narrative Exam Narrative: HEENT-NCAT MMM EOMI PERRLA NECK-NO LAD NO JVD CV-RRR NO MRG PULM-CTAB NO AMU ABD-SCAPHOID BSA EXT-NO CCE BILAT NEURO-NO FOCAL DEFICITS but not completely assessed PSYCH-pt does respond to verbal stimuli and states he will take oral meds Objective Last Vital Signs Temp 38 C H 03/04/25 08:00 Pulse 110 H 03/04/25 08:01 Resp 28 H 03/04/25 08:01 BP 122/74 03/04/25 08:01 Pulse Ox 97 03/04/25 08:01 Laboratory Results - last 24 hr 03/01/25 03/01/25 06:45 13:10 Ur Fentanyl Confirm >40 A Ur Norfentanyl Confirm >200 A Hep Bs Antigen Negative Hep Bs Antibody Positive Hep Bs Antibody, Quant 10.2 Hep B Core Total Ab Negative Hepatitis C Antibody Reactive A Time Spent with Patient Time Spent with Patient: 25-34 minutes Time was spent: preparing to see the patient(eg.review tests), obtaining and/or reviewing separately otained hiistory, ordering medications,tests, procedures, referring, communicating with other health health care facility administrator, indepentently interpreting results, counseling the patient and care coordination
[2025-03-04] MEDS: Potassium Chloride 20 MEQ TABCR 40 MEQ PO (17:44)
[2025-03-05] VITALS (18 sets, daily range): BP systolic 111–138; BP diastolic 75–92; PULSE 87–116; RESP 17–38; TEMP 37.2–38.4; O2SAT 96
[2025-03-05] MEDS: POTASSIUM CHLORIDE/0.45% NACL 1,000 ML 150 MEQ IV (05:13)
[2025-03-05 07:08] LABS: Abs Immature Grans 0.05 10^3/uL (0.0-0.06); Absolute Basophil Count 0.04 10^3/uL (0.0-0.2); Absolute Eosinophil Count 0.26 10^3/uL (0.0-0.7); Absolute Lymphocyte Count 2.22 10^3/uL (1.2-3.4); Basophils % 0.4 %; Eosinophils % 2.5 %; HCT 41.7 % (40.0-50.0); HGB 14.6 g/dL (13.5-17.5); Immature Grans % 0.5 %; Lymphocytes % 21.4 %; MCH 30.5 pg (27.0-33.0); MCV 87 fL (80-95); MPV 10.4 fL (8.0-11.0); Monocytes % 7.7 %; Neutrophils % 67.5 %; Platelet Count 317 10^3/uL (130-400); RBC 4.78 10^6/uL (4.36-5.78); RDW 11.7 % (11.8-14.1); RDW-SD 37.5 fL; WBC 10.37 10^3/uL (4.4-10.8)
[2025-03-05 07:23] LABS: ALT 37 U/L (16-63); AST 23 U/L (15-37); Albumin 3.3 g/dL (3.4-5.0); Alkaline Phosphatase 102 U/L (46-116); Anion Gap 7.7 mmol/L (3-11); BUN 8 mg/dL (7-18); Bilirubin, Total 0.5 mg/dL (0.2-1.0); CO2 26.3 mmol/L (21.0-32.0); CREATININE 0.7 mg/dL (0.70-1.30); Calcium 8.6 mg/dL (8.5-10.1); Chloride 109 mmol/L (98-107); Estimated GFR 117.98 (mL/min/1.73m2); Glucose 121 mg/dL (74-106); Potassium 3.4 mmol/L (3.5-5.1); Sodium 143 mmol/L (136-145); Total Protein 7.1 g/dL (6.4-8.2)
[2025-03-05] MEDS: Magnesium Gluconate 500 MG TAB PO (07:44)
[2025-03-05] MEDS: Potassium Chloride 20 MEQ TABCR 40 MEQ PO (07:44)
[2025-03-05] MEDS: Normal Saline Flush 10 ML SYR IVP (07:45)
[2025-03-05] MEDS: Enoxaparin 40 MG/0.4 ML SYR SC (07:46)
--- NOTE | 2025-03-05 08:59 | PDOC.CMPRO ---
Date of service: 03/05/25 Time of Service: 08:59 Care Management Progress Note Discharge Potential Discharge Needs: PCP F/U Appt Anticipated Barriers to Discharge: None Identified Patient/Family Education Needs: Review discharge instructions, discuss Ask Me Three Transportation: Private vehicle Plan: Anticipate Kb will be discharged back to [facility] when medically stable. He will follow up with the facility providers and discharge plan of care. and will be transported via facility vehicle by [facility] [employer]. CM will follow and continue to assess for discharge needs. Social Determinants of Health Screening Will the Patient Participate in the Screening?: Unable to obtain
[2025-03-05] MEDS: Ondansetron 4 MG/2 ML VIAL IVP (09:45)
--- NOTE | 2025-03-05 09:51 | W.PM.DS.N ---
Date of service: 03/05/25 Time of Service: 09:51 DS: Diagnosis Discharge Diagnosis (1) Benzodiazepine withdrawal: Status: Acute (2) Polysubstance abuse: Status: Acute (3) History of opioid abuse: Status: Acute (4) Hypokalemia: Status: Acute (5) Hypomagnesemia: Status: Acute (6) Nicotine dependence: Status: Acute (7) Elevated liver enzymes: Status: Acute (8) DVT prophylaxis: Status: Acute Discharge Plan Disposition [facility] Condition: Stable Discharge Details Reason For Visit: benzodiazepine/polysubstance withdrawal Admit Date/Time: 03/01/25 04:23 Admit Provider: Eder Reina Attending Provider: Eder Reina Primary Care Provider: Unknown,Unknown Hospital Course Hospital Course: This is a 42-year-old gentleman who was admitted for the reasons as mentioned below. Originally was in the ICU and is Hospital course was complicated by the fact the patient originally refused to take oral medications. Patient eventually started taking oral medications and improved in regards to his symptomology. On 05 March he recommended discharge back to the facility. I will send him with a prescription for Librium. In relation to his diagnostic workup he did have an elevated white count on admission but this has resolved by the time of discharge. Patient also had mild hypokalemia as well as an prescription for potassium replacement as well. Patient does have hepatitis C screening labs pending will need to follow-up in the outpatient setting. Patient will be discharged in stable health. History of Present Illness History of Present Illness Chief Complaint: anxiety, drug withdrawal Narrative: 44 yo M with history of polysubstance abuse, history of methadone for opioid use disorder but not recently in treatment, who returned to the emergency room with correctional staff for the second after being discharged the previous evening with increased anxiety, sweats, vomiting, and tremor. He initially presened at 17:36 with more mild symtpoms after being taken into custody by police. He was given midazolam in the field and was resting in bed. He was discharged at 19:45 but returned at 1:10 this morning with more severe symptoms. He gave minimal history but his symptoms including HR and BP clearly improved after diazepam. I was called to admit his for presumed benzodiazepine withdrawal. He has vomited here. He has a spit mask because he was spitting at the correctional officers. He has not had any urine output or diarrhea. The patient himself will not answer questions for me about what he is taking. He does nod to confirm he is taking benzodiazepines, xylazine, and fentanyl. Assessment and Plan Assessment and plan (1) Benzodiazepine withdrawal: Status: Acute Assessment and plan: Given his response to valium clinically and the minimal history we have, this appears to be primarily benzodiazepine withdrawal. He does respond to benzos so will stick with this, use standard lorazepam protocol with additional diazepam prn. He has minimal alcohol use (2) Polysubstance abuse: Status: Acute Assessment and plan: Also xylazine and likely fentanyl use. He is starting to yawn suggesting some opioid withdrawal. However sedative withdrawal is most medically life-threatening so focus treatment on this. If additional sedation needed, with xylazine use precedex would make sense as well or oral clonidine if he is more cooperative. we need a UDS to help guide therapy, catheterize if necessary. (3) History of opioid abuse: Status: Acute Assessment and plan: Offer MOUD with buprenorphine when he is stable and more cooperative, especially if he is clearly experiencing opioid withdrawal (4) Hypokalemia: Status: Acute Assessment and plan: supplemented, follow. (5) Hypomagnesemia: Status: Acute Assessment and plan: supplemented, follow (6) Nicotine dependence: Status: Acute Assessment and plan: nicotene patch prn (7) Elevated liver enzymes: Status: Acute Assessment and plan: high risk for hepatitis, send hep B/C and HIV screeens (8) DVT prophylaxis: Status: Acute Assessment and plan: enoxaparin Home Meds and New Rx's Prescriptions: New chlordiazepoxide HCl 5 mg Capsule 5 mg PO TID PRNQty: 14 0RF potassium chloride [Klor-Con M20] 20 mEq Tablet,Er Particles/Crystals 40 meq PO BID@0800,1700 Qty: 20 0RF magnesium gluconate 27 mg magnesium (500 mg) Tablet 500 mg PO DAILY Qty: 20 0RF Continued sildenafil 50 mg tablet 50 mg PO DAILY PRN (Reason: sexual activity) Qty: 10 6RF Rx Instructions: administer 30 minutes to 4 hours before activity methadone 10 mg/mL concentrate 110 mg PO DAILY Rx Instructions: [facility] Discharge Instructions Stand Alone Forms: Nursing Discharge Form Activity:: Activity as Tolerated Equipment/Supplies:: No Equipment Needed Diet:: As Tolerated Discharge Orders Discharge Orders: Discharge Order (Routine); Ordered 03/05/25 Ordered By: Alvarez Rivas DS: Summary Time Spent with Patient providing and/or coordinating discharge services: Less than 30 minutes Status at Discharge Functional status at discharge: independent ambulation Overall status at discharge: patient is progressing back to baseline Mental Status: mental status grossly normal Speech and Movement: speech and movement normal Mood: irritable mood Affect: indifferent Quality:SDOH Health Related Social Needs: No Data to Display Exam Narrative Exam Narrative: would respond to verbal stimuli but would not remove blanket from his head Psych Mental Status: mental status grossly normal Speech and Movement: speech and movement normal Mood: irritable mood Affect: indifferent DS: Data Vitals/I&O Vitals and I&O: Vital Signs Temperature 38.4 C H 03/05/25 09:36 Temperature Source Temporal Artery Scan 03/05/25 09:36 Pulse 104 H 03/05/25 09:36 Pulse 89 03/05/25 09:01 Respiratory Rate 22 03/05/25 09:36 Respiratory Effort Normal 03/01/25 06:19 Respiratory Depth Normal 03/01/25 06:19 Respiratory Pattern Normal 03/01/25 06:19 Blood Pressure 113/81 03/05/25 09:36 Blood Pressure Mean 91 03/05/25 09:36 Blood Pressure Position Sitting 03/01/25 01:10 Pulse Oximetry 96 03/05/25 09:36 Oxygen Delivery Method Room Air 03/05/25 09:36 Oxygen Flow Rate 0 03/05/25 09:36 Pain Level 0 03/04/25 08:00 Intake & Output 03/04/25 03/04/25 03/05/25 11:59 23:59 11:59 Intake Total 2413.333 / 5749.333 3336 / 5749.333 1460 / 1460 Output Total 2950 / 4900 1950 / 4900 3350 / 3350 Balance -536.667 / 412.341 2780 / 849.333 -1890 / -1890 Weight 64.2 kg 64.3 kg Intake: IV 1633.333 / 3633.333 1999 / 3633.333 1000 / 1000 Oral 780 / 2116 1336 / 2116 460 / 460 Output: Urine 2950 / 4900 1950 / 4900 3350 / 3350 Other: Urine Color Yellow Yellow Yellow Urine Appearance Cloudy Clear Clear Sediment Stool Size Small Stool Characteristics Soft Data Completed and Pending Labs on day of discharge: Labs from last 24 hours 03/05/25 03/01/25 05:30 13:10 WBC 10.37 RBC 4.78 Hgb 14.6 Hct 41.7 MCV 87 MCH 30.5 MCHC 35.0 RDW 11.7 L Plt Count 317 MPV 10.4 Immature Gran % 0.5 Neutrophils % 67.5 Lymphocytes % 21.4 Monocytes % 7.7 Eosinophils % 2.5 Basophils % 0.4 Nucleated RBC % 0.0 Absolute Neutrophils 7.00 H Absolute Lymphocytes 2.22 Absolute Monocytes 0.80 Absolute Eosinophils 0.26 Absolute Basophils 0.04 Sodium 143 Potassium 3.4 L Chloride 109 H Carbon Dioxide 26.3 Anion Gap 7.7 BUN 8 Creatinine 0.7 Est GFR (CKD-EPI 2020) 117.98 Glucose 121 H Calcium 8.6 Total Bilirubin 0.5 AST 23 ALT 37 Alkaline Phosphatase 102 Total Protein 7.1 Albumin 3.3 L Ur Fentanyl Confirm >40 A Ur Norfentanyl Confirm >200 A Preliminary micro results at discharge 03/01/25 19:20 Blood Blood Culture - Preliminary NO GROWTH 72 HOURS 03/01/25 19:00 Blood Blood Culture - Preliminary NO GROWTH 72 HOURS 03/02/25 15:12 Blood Blood Culture - Preliminary NO GROWTH 48 HOURS 03/02/25 15:05 Blood Blood Culture - Preliminary Gram positive cocci PFSH All Active Problems Elevated liver enzymes (Acute) DVT prophylaxis (Acute) Hypomagnesemia (Acute) Hypokalemia (Acute) Benzodiazepine withdrawal (Acute) Polysubstance abuse (Acute) Drug withdrawal (Acute) Drug abuse (Acute) History of opioid abuse (Acute) Nicotine dependence (Acute) 1/2 PPD since teens History of intravenous drug use in remission (Acute) Medical History IVDU (intravenous drug user) Social History (Updated 03/01/25 @ 04:46 by Eder Reina) Smoking/Tobacco Use Status: Current every day Tobacco Type: cigarettes Smoking packs per day: 1 Smoking cigarettes per day: 20.0 Smoking risk assessment performed?: Yes Alcohol Intake: current Alcohol Intake frequency: a few times a week Alcohol type: beer Drug use: Daily Substance use type: marijuana, heroin, tranquilizers, sedatives and opiates Details: History of IV Drug Use Household members: significant other Housing: apartment Number of Children: 4 Do you need help understanding health information?: Never current occupation: [employer] Sexually active: Yes Do you think of yourself as: straight/heterosexual Current gender identity: male Additional Social history: police custody 02/28 Time Spent with Patient Time Spent with Patient: <45 minutes Time was spent: preparing to see the patient(eg.review tests), obtaining and/or reviewing separately otained hiistory, ordering medications,tests, procedures, referring, communicating with other health medication care manager, indepentently interpreting results, counseling the patient and care coordination
--- NOTE | 2025-03-05 09:58 | DSE_ITS ---
Date of service: 03/05/25 Time of Service: 15:00 DS: Diagnosis Discharge Diagnosis (1) Benzodiazepine withdrawal: Status: Acute (2) Polysubstance abuse: Status: Acute (3) History of opioid abuse: Status: Acute (4) Hypokalemia: Status: Acute (5) Hypomagnesemia: Status: Acute (6) Nicotine dependence: Status: Acute (7) Elevated liver enzymes: Status: Acute (8) DVT prophylaxis: Status: Resolved Discharge Plan Disposition [facility] Condition: Stable Discharge Details Reason For Visit: benzodiazepine/polysubstance withdrawal Admit Date/Time: 03/01/25 04:23 Admit Provider: Eder Reina Attending Provider: Eder Reina Primary Care Provider: Unknown,Unknown Hospital Course Hospital Course: This is a 42-year-old gentleman who was admitted for the reasons as mentioned below. Originally was in the ICU and is Hospital course was complicated by the fact the patient originally refused to take oral medications. Patient eventually started taking oral medications and improved in regards to his symptomology. On 05 March he recommended discharge back to the facility. I will send him with a prescription for Librium. In relation to his diagnostic workup he did have an elevated white count on admission but this has resolved by the time of discharge. Patient also had mild hypokalemia as well as an prescription for potassium replacement as well. Patient does have hepatitis C screening labs pending will need to follow-up in the outpatient setting. Patient will be discharged in stable health. History of Present Illness History of Present Illness Chief Complaint: anxiety, drug withdrawal Narrative: 44 yo M with history of polysubstance abuse, history of methadone for opioid use disorder but not recently in treatment, who returned to the emergency room with correctional staff for the second after being discharged the previous evening with increased anxiety, sweats, vomiting, and tremor. He initially presened at 17:36 with more mild symtpoms after being taken into custody by police. He was given midazolam in the field and was resting in bed. He was discharged at 19:45 but returned at 1:10 this morning with more severe symptoms. He gave minimal history but his symptoms including HR and BP clearly improved after diazepam. I was called to admit his for presumed benzodiazepine withdrawal. He has vomited here. He has a spit mask because he was spitting at the correctional officers. He has not had any urine output or diarrhea. The patient himself will not answer questions for me about what he is taking. He does nod to confirm he is taking benzodiazepines, xylazine, and fentanyl. Assessment and Plan Assessment and plan (1) Benzodiazepine withdrawal: Status: Acute Assessment and plan: Given his response to valium clinically and the minimal history we have, this appears to be primarily benzodiazepine withdrawal. He does respond to benzos so will stick with this, use standard lorazepam protocol with additional diazepam prn. He has minimal alcohol use (2) Polysubstance abuse: Status: Acute Assessment and plan: Also xylazine and likely fentanyl use. He is starting to yawn suggesting some opioid withdrawal. However sedative withdrawal is most medically life- threatening so focus treatment on this. If additional sedation needed, with xylazine use precedex would make sense as well or oral clonidine if he is more cooperative. we need a UDS to help guide therapy, catheterize if necessary. (3) History of opioid abuse: Status: Acute Assessment and plan: Offer MOUD with buprenorphine when he is stable and more cooperative, especially if he is clearly experiencing opioid withdrawal (4) Hypokalemia: Status: Acute Assessment and plan: supplemented, follow. (5) Hypomagnesemia: Status: Acute Assessment and plan: supplemented, follow (6) Nicotine dependence: Status: Acute Assessment and plan: nicotene patch prn (7) Elevated liver enzymes: Status: Acute Assessment and plan: high risk for hepatitis, send hep B/C and HIV screeens (8) DVT prophylaxis: Status: Acute Assessment and plan: enoxaparin Home Meds and New Rx's Prescriptions: New chlordiazepoxide HCl 5 mg Capsule 5 mg PO TID PRNQty: 14 0RF potassium chloride [Klor-Con M20] 20 mEq Tablet,Er Particles/Crystals 40 meq PO BID@0800,1700 Qty: 20 0RF magnesium gluconate 27 mg magnesium (500 mg) Tablet 500 mg PO DAILY Qty: 20 0RF Continued sildenafil 50 mg tablet 50 mg PO DAILY PRN (Reason: sexual activity) Qty: 10 6RF Rx Instructions: administer 30 minutes to 4 hours before activity methadone 10 mg/mL concentrate 110 mg PO DAILY Rx Instructions: [facility] Discharge Instructions Stand Alone Forms: Nursing Discharge Form Activity:: Activity as Tolerated Equipment/Supplies:: No Equipment Needed Diet:: As Tolerated Discharge Orders Discharge Orders: Discharge Order (Routine); Ordered 03/05/25 Ordered By: Alvarez Rivas Discharge Data Discharge Date/Time-TO BE ENTERED AT DEPARTURE: 03/05/25 10:52 DS: Summary Time Spent with Patient providing and/or coordinating discharge services: Less than 30 minutes Status at Discharge Functional status at discharge: independent ambulation Overall status at discharge: patient is back to baseline Mental Status: mental status grossly normal Speech and Movement: speech and movement normal Mood: congruent mood Affect: normal affect Quality:SDOH Health Related Social Needs: No Data to Display Exam Psych Mental Status: mental status grossly normal Speech and Movement: speech and movement normal Mood: congruent mood Affect: normal affect DS: Data Vitals/I&O Vitals and I&O: Vital Signs Temperature 38.4 C H 03/05/25 09:36 Temperature Source Temporal Artery Scan 03/05/25 09:36 Pulse 104 H 03/05/25 09:36 Pulse 89 03/05/25 09:01 Respiratory Rate 22 03/05/25 09:36 Respiratory Effort Normal 03/01/25 06:19 Respiratory Depth Normal 03/01/25 06:19 Respiratory Pattern Normal 03/01/25 06:19 Blood Pressure 113/81 03/05/25 09:36 Blood Pressure Mean 91 03/05/25 09:36 Blood Pressure Position Sitting 03/01/25 01:10 Pulse Oximetry 96 03/05/25 09:36 Oxygen Delivery Method Room Air 03/05/25 09:36 Oxygen Flow Rate 0 03/05/25 09:36 Pain Level 0 03/04/25 08:00 Intake & Output 03/04/25 03/04/25 03/05/25 11:59 23:59 11:59 Intake Total 2413.333 / 5749.333 3336 / 5749.333 1460 / 1460 Output Total 2950 / 4900 1950 / 4900 3350 / 3350 Balance -536.667 / 983.837 5013 / 849.333 -1890 / -1890 Weight 64.2 kg 64.3 kg Intake: IV 1633.333 / 3633.333 1999 / 3633.333 1000 / 1000 Oral 780 / 2116 1336 / 2116 460 / 460 Output: Urine 2950 / 4900 1950 / 4900 3350 / 3350 Other: Urine Color Yellow Yellow Yellow Urine Appearance Cloudy Clear Clear Sediment Stool Size Small Stool Characteristics Soft Data Completed and Pending Labs on day of discharge: Labs from last 24 hours 03/05/25 03/01/25 05:30 13:10 WBC 10.37 RBC 4.78 Hgb 14.6 Hct 41.7 MCV 87 MCH 30.5 MCHC 35.0 RDW 11.7 L Plt Count 317 MPV 10.4 Immature Gran % 0.5 Neutrophils % 67.5 Lymphocytes % 21.4 Monocytes % 7.7 Eosinophils % 2.5 Basophils % 0.4 Nucleated RBC % 0.0 Absolute Neutrophils 7.00 H Absolute Lymphocytes 2.22 Absolute Monocytes 0.80 Absolute Eosinophils 0.26 Absolute Basophils 0.04 Sodium 143 Potassium 3.4 L Chloride 109 H Carbon Dioxide 26.3 Anion Gap 7.7 BUN 8 Creatinine 0.7 Est GFR (CKD-EPI 2020) 117.98 Glucose 121 H Calcium 8.6 Total Bilirubin 0.5 AST 23 ALT 37 Alkaline Phosphatase 102 Total Protein 7.1 Albumin 3.3 L Ur Fentanyl Confirm >40 A Ur Norfentanyl Confirm >200 A Preliminary micro results at discharge 03/01/25 19:20 Blood Blood Culture - Preliminary NO GROWTH 72 HOURS 03/01/25 19:00 Blood Blood Culture - Preliminary NO GROWTH 72 HOURS 03/02/25 15:12 Blood Blood Culture - Preliminary NO GROWTH 48 HOURS 03/02/25 15:05 Blood Blood Culture - Preliminary Gram positive cocci PFSH All Active Problems Elevated liver enzymes (Acute) Hypomagnesemia (Acute) Hypokalemia (Acute) Benzodiazepine withdrawal (Acute) Polysubstance abuse (Acute) Drug withdrawal (Acute) Drug abuse (Acute) History of opioid abuse (Acute) Nicotine dependence (Acute) 1/2 PPD since teens History of intravenous drug use in remission (Acute) Medical History IVDU (intravenous drug user) Social History (Updated 03/01/25 @ 04:46 by Eder Reina) Smoking/Tobacco Use Status: Current every day Tobacco Type: cigarettes Smoking packs per day: 1 Smoking cigarettes per day: 20.0 Smoking risk assessment performed?: Yes Alcohol Intake: current Alcohol Intake frequency: a few times a week Alcohol type: beer Drug use: Daily Substance use type: marijuana, heroin, tranquilizers, sedatives and opiates Details: History of IV Drug Use Household members: significant other Housing: apartment Number of Children: 4 Do you need help understanding health information?: Never current occupation: [employer] Sexually active: Yes Do you think of yourself as: straight/heterosexual Current gender identity: male Additional Social history: police custody 02/28 Time Spent with Patient Time Spent with Patient: <45 minutes Time was spent: preparing to see the patient(eg.review tests), obtaining and/or reviewing separately otained hiistory, ordering medications,tests, procedures, referring, communicating with other health home care attendant, indepentently interpreting results, counseling the patient and care coordination
--- NOTE | 2025-03-05 10:10 | PDOC.CMDIS ---
Date of service: 03/05/25 Time of Service: 10:10 LACE Index Scoring Tool Questions: Length of Stay (in days): 4 - 6 Was the patient admitted via the E.D.?: Yes Comorbidities: Liver or Renal Disease E.D. Visits: 2 Answers: Total Score: 14 Risk of Readmission: High Risk Care Management Discharge Plan Reason for Hospitalization: ETOH withdrawal Discharge Plan: Kb will be discharged back to [facility]. He will follow up with the facility providers and plan of care and transport via facility vehicle accompanied by a special weapons unit officer. Patient/Family Education Needs: Review of discharge instructions, limitations, follow up plan and discuss Ask Me [facility] Health Related Social Needs: No Data to Display
[2025-03-05 13:50] LABS: HCV RNA Detection Quantitative 3450000 IU/mL (Undetected); HCV RNA Qualitative Detected (Undetected)
== END 2025-03-05 10:52 | DRG 897 ==
LOC: ER 04:38 → ICU 05:14 → MS 03-05 09:39
PROVIDERS: Admitting Provider Family Medicine; Emergency Provider Emergency Medicine; Responsible Provider Hospitalist; Visit Provider Family Medicine
DX: F19.10 Other psychoactive substance abuse, uncomplicated; F11.10 Opioid abuse, uncomplicated; E87.6 Hypokalemia; E83.42 Hypomagnesemia; R74.8 Abnormal levels of other serum enzymes; F13.239 Sedative, hypnotic or anxiolytic dependence with withdrawal, unspecified; F12.90 Cannabis use, unspecified, uncomplicated; Z78.1 Physical restraint status; D72.829 Elevated white blood cell count, unspecified
CPT/HCPCS: 00123; 36415; 80048; 80053; 80307; 80354; 84145; 85652; 86704; 86706; 86803; 87040; 87077; 87340; 87389; 87522; 93005; 96361; 96365; 96375; 96376; 99291; J1650; 71045; 81003; 83036; 83735; 85025; 86140; 87186; 93010; 99222; 99231; 99238; J0131; J2060; J2405; J3360; J3475; J3480; J3490